=== PATIENT | female | born 1955 | race Caucasian/White ===

== ENCOUNTER 2021-02-01 13:33 | Emergency (ER) | payer OTHER ==
[~2021-02-01] VITALS: Ht 162.6 cm; Wt 131.5 kg
[2021-02-01] MEDS ORDERED: ONDANSETRON ODT 4 MG TAB PO ONE (16:45)
[2021-02-01] MEDS ORDERED: MORPHINE SULFATE INJECTION 2 MG/ML SYRG IM ONE (16:45)
[2021-02-01 17:32] VITALS: BP 125/65
== END 2021-02-01 17:41 | disposition home or self-care (01) ==
LOC: ER 13:33 → EDBD 13:33 → ER 17:41
DX: S39.012A Strain of muscle, fascia and tendon of lower back, initial encounter (principal); S80.01XA Contusion of right knee, initial encounter; S80.02XA Contusion of left knee, initial encounter; W01.0XXA Fall on same level from slipping, tripping and stumbling without subsequent striking against object, initial encounter; Y93.89 Activity, other specified; Y92.89 Other specified places as the place of occurrence of the external cause; Y99.8 Other external cause status
CPT/HCPCS: 72100; 73562; 96372; 99284; J2270; Q0162